=== PATIENT | male | born 1955 | race Caucasian/White ===

== ENCOUNTER → 2016-11-28 | Outpatient (CLI) | payer BC, OTHER ==
[~2016-11-28] MED LIST: EXCEDRIN1 TAB PO
== END ==
LOC: COL.RAD 07:57
DX: M25.511 Pain in right shoulder (principal); M25.512 Pain in left shoulder
CPT/HCPCS: J3301; Q9967

== ENCOUNTER 2017-12-20 08:02 | Day surgery (SDC) | payer BC, OTHER ==
[~2017-12-20] VITALS: Ht 175.3 cm; Wt 67.8 kg
[2017-12-20] MEDS ORDERED: KLONOPIN 0.5MG0.5 MG PO (08:15)
[2017-12-20] MEDS ORDERED: METAMUCIL3.4 GM/DOS PO (08:18)
[2017-12-20 08:55] VITALS: BP 137/102; PULSE 88; TEMP 97.7
[2017-12-20 09:44] VITALS: BP 118/80; PULSE 95; TEMP 98.2
[2017-12-20 10:00] VITALS: BP 100/72; PULSE 87
[2017-12-20 10:09] VITALS: BP 113/94; PULSE 83
== END 2017-12-20 10:20 | disposition home or self-care (01) ==
LOC: SDCO 08:02
DX: Z12.11 Encounter for screening for malignant neoplasm of colon (principal); Z86.010 Personal history of colon polyps; D12.0 Benign neoplasm of cecum; K64.1 Second degree hemorrhoids; K57.30 Diverticulosis of large intestine without perforation or abscess without bleeding
CPT/HCPCS: J2250; J2405; J3010; J7030

== ENCOUNTER → 2018-01-22 | Outpatient (CLI) | payer BC, OTHER ==
[~2018-01-22] MED LIST changes: +KLONOPIN 0.5MG0.5 MG PO; +METAMUCIL3.4 GM/DOS PO
== END ==
LOC: COL.RAD 13:11
DX: M19.011 Primary osteoarthritis, right shoulder (principal); M19.012 Primary osteoarthritis, left shoulder
CPT/HCPCS: J3301; Q9967

== ENCOUNTER 2018-01-23 08:22 | Emergency (ER) | payer BC, OTHER ==
[~2018-01-23] VITALS: Ht 175.3 cm; Wt 70.5 kg
[2018-01-23 08:44] VITALS: TEMP 98.5
[2018-01-23 09:09] LABS: HEMATOCRIT 43.7 % (42.0-52.0); HEMOGLOBIN 14.9 g/dl (13.5-18.0); MEAN CELL VOLUME 91 fl (80.0-100.0); MEAN CORPUSCULAR HEMOGLOBIN 31 pg (27.0-31.0); MEAN CORPUSCULAR HGB CONC 34 g/dl (33.0-37.0); MEAN PLATELET VOLUME 8.6 fl (7.4-10.4); PLATELET COUNT 306 K/mm3 (130-400); RED BLOOD COUNT 4.83 M/mm3 (4.20-5.60); REDCELL DISTRIBUTION WIDTH-CV 11.9 % (11.5-14.5)
[2018-01-23 09:17] LABS: ALANINE AMINOTRANSFERASE 24 U/L (21-72); ALBUMIN 4.2 gm/dL (3.5-5.0); ALKALINE PHOSPHATASE 68 U/L (50-136); ANION GAP 13 mmol/L (7-16); AST,SGOT 24 U/L (15-37); BILIRUBIN,TOTAL 0.5 mg/dL (0.0-1.0); BLOOD UREA NITROGEN 12 mg/dL (9-20); CALCIUM 10.4 mg/dL (8.4-10.2); CARBON DIOXIDE 22 mmol/L (22-30); CHLORIDE 104 mmol/L (98-107); CREATININE, serum 1.01 mg/dL (0.66-1.25); GLUCOSE 184 mg/dL (74-106); LIPASE 27 U/L (23-300); MAGNESIUM 2.1 mg/dL (1.6-2.3); PHOSPHOROUS 2.6 mg/dL (2.5-4.5); POTASSIUM 4.3 mmol/L (3.4-5.0); SODIUM 139 mmol/L (137-145); TOTAL PROTEIN 8.2 gm/dL (6.4-8.2)
[2018-01-23 09:21] LABS: LYMPHOCYTE 3 % (20.0-51.0); NEUTROPHILS 95 % (42.0-75.2)
[2018-01-23 09:22] LABS: PLATELET ESTIMATE NORMAL (NORMAL)
[2018-01-23 09:30] LABS: TROPONIN-I < 0.012 ng/mL (0.000-0.034)
[2018-01-23 13:15] VITALS: BP 157/98; PULSE 98
== END 2018-01-23 13:17 | disposition home or self-care (01) ==
LOC: COL.ER 08:22
PROVIDERS: Emergency Medicine
DX: R00.2 Palpitations (principal); R94.31 Abnormal electrocardiogram [ECG] [EKG]; Z86.79 Personal history of other diseases of the circulatory system
CPT/HCPCS: J7030

== ENCOUNTER 2021-07-07 07:12 | Day surgery (SDC) | payer MEDICARE, BC, OTHER ==
[~2021-07-07] VITALS: Ht 175.3 cm; Wt 66.8 kg
[2021-07-07 07:58] VITALS: BP 130/88; PULSE 99; TEMP 97.5
--- NOTE | 2021-07-07 08:15 | NUR ---
Patient ambulated back to [facility]. was in waiting room and joined him 15 minutes later. Vitals obtained. Consent signed and patient verbalized understanding. Medications reviewed. IV started in RT hand with #20, fluids infusing without difficulty. Call [facility] is within reach. was happy to join.
[2021-07-07 09:15] VITALS: BP 125/85; PULSE 81
--- NOTE | 2021-07-07 09:15 | NUR ---
Patient returns to [facility] per cart after having EGD and colonoscopy. Transferred from cart to recliner with two person assist. IV fluids infusing. Spouse in room. Given water to drink. Denies nausea or pain.
[2021-07-07 09:30] VITALS: BP 133/79; PULSE 79
--- NOTE | 2021-07-07 09:30 | NUR ---
Eating muffin and drinking water.
[2021-07-07 09:45] VITALS: BP 139/89; PULSE 81
--- NOTE | 2021-07-07 09:45 | NUR ---
Dr. Flaherty here and talks with patient and all questions answered. Spouse in room and also voices understanding of home cares and follow up.
--- NOTE | 2021-07-07 09:55 | NUR ---
IV discontinued and site is free of redness. Patient dresses self.
--- NOTE | 2021-07-07 10:05 | NUR ---
Dismissal instructions signed and voices understanding of these. Patient dismissed to home driven by spouse and taken to the front door per wheelchair and assisted into vehicle with instructions in hand.
== END 2021-07-07 10:05 | disposition home or self-care (01) ==
LOC: SDCO 07:12
DX: Z12.11 Encounter for screening for malignant neoplasm of colon (principal); K21.9 Gastro-esophageal reflux disease without esophagitis; K29.70 Gastritis, unspecified, without bleeding; K57.30 Diverticulosis of large intestine without perforation or abscess without bleeding; Z20.822 Contact with and (suspected) exposure to COVID-19; Z86.010 Personal history of colon polyps
CPT/HCPCS: 43239; G0105; J2704; J7030

== ENCOUNTER → 2021-08-01 | Outpatient (CLI) | payer MEDICARE, BC, OTHER | LOC: COL.RAD 07-27 08:30 | DX: K57.30 Diverticulosis of large intestine without perforation or abscess without bleeding (principal); N32.9 Bladder disorder, unspecified; K76.0 Fatty (change of) liver, not elsewhere classified | CPT/HCPCS: Q9967 ==

== ENCOUNTER → 2021-08-24 | Outpatient (CLI) | payer MEDICARE, BC, OTHER | LOC: COL.RAD 09:57 | DX: G31.9 Degenerative disease of nervous system, unspecified (principal); J32.0 Chronic maxillary sinusitis | CPT/HCPCS: A9575 ==